=== PATIENT | female | born 1990 | race Caucasian/White ===

== ENCOUNTER 2018-04-29 00:11 | Emergency (ER) | payer OTHER, MEDICAID ==
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
[2018-04-29] MEDS ORDERED: fentaNYL 100 MCG/2 ML INJ IVP ONE (00:32)
[2018-04-29] MEDS ORDERED: IBUPROFEN 600 MG TAB PO ONE (01:41)
[2018-04-29 02:09] VITALS: BP 120/77
== END 2018-04-29 02:10 | disposition home or self-care (01) ==
LOC: EDUNIT#
DX: S42.022A Displaced fracture of shaft of left clavicle, initial encounter for closed fracture (principal); M79.644 Pain in right finger(s); V49.40XA Driver injured in collision with unspecified motor vehicles in traffic accident, initial encounter
CPT/HCPCS: 96374; J3010; L3807

== ENCOUNTER 2018-04-30 13:51 | Emergency (ER) | payer OTHER, MEDICAID ==
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
[2018-04-30 15:14] VITALS: BP 122/78
== END 2018-04-30 15:16 | disposition home or self-care (01) ==
DX: M54.2 Cervicalgia (principal); M79.89 Other specified soft tissue disorders

== ENCOUNTER 2018-05-04 09:35 | Day surgery (SDC) | payer OTHER, MEDICAID ==
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
[2018-05-04] MEDS ORDERED: ceFAZolin 2 GM/DEXTROSE 100 ML IV ONE (10:03)
[2018-05-04] MEDS ORDERED: LIDOCAINE 1% 2 ML INJ ID PRN (10:04)
--- NOTE | 2018-05-04 10:08 | PDHPUP ---
History & Physical Update H&P update statement: This history and physical update is based on an assessment of the patient which was completed after admission or registration (within 24 hours), but prior to the surgery/procedure. H&P update: H&P reviewed & patient examined, no change in patient's condition since H&P completed
[2018-05-04] MEDS ORDERED: BUPIVACAINE/EPI 0.5% 30 ML SDV ONE (10:12)
[2018-05-04] MEDS ORDERED: LR 1,000 ML IV ONE (10:27)
[2018-05-04] MEDS ORDERED: MIDAZOLAM 2 MG/2 ML VIAL IVP ONE (11:05)
--- NOTE | 2018-05-04 11:05 | PDANEPAE ---
ANE History of Present Illness Left clavicle fracture ANE Past Medical History - Cardiovascular History Hx Hypertension: No Hx Arrhythmias: No Hx Chest Pain: No Hx Coronary Artery / Peripheral Vascular Disease: No Hx CHF / Valvular Disease: No Hx Palpitations: No - Pulmonary History Hx COPD: No Hx Asthma/Reactive Airway Disease: Yes Hx Recent Upper Respiratory Infection: No Hx Oxygen in Use at Home: No Hx Sleep Apnea: No Sleep Apnea Screening Result - Last Documented: Negative Pulmonary History Comment: CHILDHOOD ASTHMA - Neurologic History Hx Cerebrovascular Accident: No Hx Seizures: No Hx Dementia: No - Endocrine History Hx Diabetes: No Endocrine History Comment: HYPOTHYROID - Renal History Hx Renal Disorders: No - Liver History Hx Hepatic Disorders: No - Neurological & Psychiatric Hx Hx Neurological and Psychiatric Disorders: No - Cancer History Hx Cancer: No - Congenital Disorder History Hx Congenital Disorders: No - GI History Hx Gastrointestinal Disorders: No - Other Health History Other Health History: NEG - Chronic Pain History Chronic Pain: No - Surgical History Prior Surgeries: NONE ANE Review of Systems Review of Systems: - Exercise capacity METS (RN): 5 METS ANE Patient History - Allergies Allergies/Adverse Reactions: No Known Allergies Allergy (Unverified 04/29/18 00:22) - Home Medications Home medications: home medication list seen and reviewed Home Medications: Synthroid 04/29/18 [Last Taken Unknown] Ibuprofen 05/03/18 [Last Taken Unknown] - NPO status NPO Since - Liquids (Date): 05/04/18 NPO Since - Liquids (Time): 06:00 NPO Since - Solids (Date): 05/03/18 NPO Since - Solids (Time): 20:00 - Anes Hx Anes Hx: no prior problems - Smoking Hx Smoking Status: Current every day smoker - Family Anes Hx Family Hx Anesthesia Complications: NEG ANE Labs/Vital Signs - Vital Signs Blood Pressure: 90/55 Heart Rate: 60 Respiratory Rate: 16 O2 Sat (%): 96 Height: 154.94 cm Weight: 54.431 kg ANE Physical Exam - Airway Neck exam: FROM Mallampati Score: Class 1 Mouth exam: normal dental/mouth exam - Pulmonary Pulmonary: no respiratory distress - Cardiovascular Cardiovascular: regular rate and rhythym - ASA Status ASA Status: II ANE Anesthesia Plan Anesthesia Plan: GA w LMA
[2018-05-04] MEDS ORDERED: MIDAZOLAM 2 MG/2 ML VIAL ONE (11:10)
[2018-05-04] MEDS ORDERED: fentaNYL 100 MCG/2 ML INJ ONE ×2 (11:20→12:32)
[2018-05-04] MEDS ORDERED: PROPOFOL 200 MG/20 ML VIAL ONE (11:21)
[2018-05-04] MEDS ORDERED: ONDANSETRON 4 MG/2 ML VIAL ONE (11:48)
--- NOTE | 2018-05-04 12:20 | POSTOPPROG ---
Post Op Note Date of Operation: 05/04/18 Surgeon: Timur Medina Assembler Surgical Garment: lisa Gray Anesthesiologist: Earl Anesthesia: GET(General Endotracheal) Pre-op Diagnosis: displaced lt clavicle fx Post-op Diagnosis: same Indication: displaced fx Procedure: ORIF lT clavicle Findings: displaced 2 part fx Inf/Abcess present in the surg proc area at time of surgery?: No EBL: Minimal Complications: none
[2018-05-04] MEDS ORDERED: HYDROmorphONE/DILAUDID 1 MG/ML INJ IVP PRN (12:21)
[2018-05-04] MEDS ORDERED: PROMETHAZINE HCL 25 MG/ML INJ IVP PRN (12:21)
[2018-05-04] MEDS ORDERED: NALOXONE HCL 0.4 MG/ML INJ IVP PRN (12:21)
[2018-05-04] MEDS ORDERED: ONDANSETRON 4 MG/2 ML VIAL IVP PRN (12:21)
[2018-05-04] MEDS ORDERED: KETOROLAC 30 MG/1 ML SDV IVP ONE (12:22)
--- NOTE | 2018-05-04 12:23 | POSTANESTH ---
Post Anesthetic Evaluation Cardiovascular Status: Similar to Pre-Op Cond Respiratory Status: Similar to Pre-op Cond. Level of Consciousness/Mental Status: Can Participate in Eval Pain Control: Adequate, Prn Tx Ordered Nausea/Vomiting Control: Adequate, Prn Tx Ordered Complications Possibly Related to Anesthesia: None Noted
[2018-05-04] MEDS ORDERED: KETOROLAC 30 MG/1 ML SDV ONE (12:32)
[2018-05-04] MEDS: fentaNYL 100 MCG/2 ML INJ IVP PRN ×2 (12:35→13:06)
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
[2018-05-04 14:38] VITALS: BP 102/71
== END 2018-05-04 14:30 | disposition home or self-care (01) ==
LOC: FSGY 09:35
PROVIDERS: ATTEND Orthopaedic Surgery
PROC: 0PSB04Z Reposition Left Clavicle with Internal Fixation Device, Open Approach (ICD-10-PCS; principal; 2018-05-04 11:00)
PROC: BP15ZZZ Fluoroscopy of Left Clavicle (ICD-10-PCS; principal; 2018-05-04 11:00)
DX: S42.022A Displaced fracture of shaft of left clavicle, initial encounter for closed fracture (principal); V89.9XXA Person injured in unspecified vehicle accident, initial encounter; Y99.8 Other external cause status
CPT/HCPCS: C1713; J0690; J1885; J2250; J2405; J2704; J3010